=== PATIENT | male | born 1960 | race Caucasian/White ===

== ENCOUNTER 2016-05-20 10:45 | Outpatient (CLI) | payer OTHER | END 2016-05-20 10:46 | disposition home or self-care (01) | DX: E55.9 Vitamin D deficiency, unspecified (principal); Z79.899 Other long term (current) drug therapy ==

== ENCOUNTER 2017-10-14 09:52 | Outpatient (CLI) | payer OTHER ==
--- NOTE | 2017-10-14 16:05 | MRI Report ---
EXAM: RIGHT KNEE MRI WITHOUT CONTRAST EXAM DATE: 10/14/2017 10:56 AM. CLINICAL HISTORY: Internal derangement of the right knee. COMPARISON: None. TECHNIQUE: Multiplanar, multisequence T1-weighted and fluid-sensitive sequences of the knee without c ontrast. Other: None. FINDINGS: Bones: No fractures. Reactive periarticular marrow edema is in the periphery of the medial femoral co ndyle.. Articular Cartilage: Unremarkable. Medial Meniscus: The body of the medial meniscus demonstrates a longitudinal tear (801/19). Lateral Meniscus: The lateral meniscus is intact. Cruciate Ligaments: The anterior and posterior cruciate ligaments are intact. Collateral Ligaments: The medial collateral and lateral collateral ligamentous structures are intact. Tendons: The quadriceps, patellar, semimembranosus, and popliteus tendons are unremarkable. Musculature: No edema or fatty atrophy. Other: No effusion. No popliteal cyst. No loose bodies. The medial and lateral retinacula are intact . Prepatellar subcutaneous edema seen.. IMPRESSION: Longitudinal tear in the body of the medial meniscus. [facility] MUSCULOSKELETAL RADIOLOGY SECTION Referring Provider Line: [phone] SITE ID: [id number]
== END 2017-10-14 09:53 | disposition home or self-care (01) ==
LOC: DI 09:52
PROVIDERS: ATTEND Nurse Practitioner Primary Care
DX: S83.241A Other tear of medial meniscus, current injury, right knee, initial encounter (principal)

== ENCOUNTER → 2018-05-06 | Outpatient (CLI) | payer OTHER | LOC: LAB.R 08:00 | PROVIDERS: ATTEND Nurse Practitioner Primary Care | DX: Z53.9 Procedure and treatment not carried out, unspecified reason (principal) ==

== ENCOUNTER 2019-05-23 07:54 | Outpatient (CLI) | payer OTHER ==
[2019-05-23 08:16] LABS: BASOPHILS % (AUTO) 0.7 %; EOSINOPHILS # (AUTO) 0.2 10^3/uL (0.0-0.7); EOSINOPHILS % (AUTO) 3.3 %; HGB - HEMOGLOBIN 15.5 g/dL (14.0-18.0); LYMPHOCYTES # (AUTO) 1.7 10^3/uL (1.5-3.5); LYMPHOCYTES % (AUTO) 29.1 %; MEAN CORPUSCULAR HEMOGLOBIN 30.5 pg (27.0-31.0); MEAN CORPUSCULAR HGB CONC 33.8 g/dL (32.0-36.0); MEAN CORPUSCULAR VOLUME 90.2 fL (80.0-94.0); MEAN PLATELET VOLUME 10.2 fL (7.4-11.4); MONOCYTES # (AUTO) 0.7 10^3/uL (0.0-1.0); MONOCYTES % (AUTO) 12.2 %; NEUTROPHILS # (AUTO) 3.2 10^3/uL (1.5-6.6); NEUTROPHILS % (AUTO) 54.2 %; PLT - PLATELET COUNT 228 10^3/uL (130-450); RED BLOOD COUNT 5.08 10^6/uL (4.70-6.10); RED CELL DISTRIBUTION WIDTH 14.1 % (12.0-15.0); WHITE BLOOD COUNT 5.8 x10^3/uL (4.8-10.8)
[2019-05-23 08:36] LABS: ALBUMIN 4.3 g/dL (3.2-5.5); ALBUMIN/GLOBULIN RATIO 1.4 (1.0-2.2); ALKALINE PHOSPHATASE 89 IU/L (42-121); ALT ALANINE AMINOTRANSFERASE 21 IU/L (10-60); AST ASPARTATE AMINOTRANSFERASE 25 IU/L (10-42); BILIRUBIN,TOTAL 1.3 mg/dL (0.2-1.0); BUN - BLOOD UREA NITROGEN 21 mg/dL (6-20); CALCIUM 8.8 mg/dL (8.5-10.3); CARBON DIOXIDE - CO2 30 mmol/L (21-32); CHLORIDE 100 mmol/L (101-111); CHOL/HDL RATIO 3.1 (<5.0); CHOLESTEROL 233 mg/dL; CREATININE 1.1 mg/dL (0.6-1.2); GFR - MDRD 69 (>89); GLUCOSE 104 mg/dL (70-100); HDL CHOLESTEROL 74 mg/dL; LDL CHOLESTEROL,CALCULATED 133 mg/dL; LDL/HDL RATIO 1.8 (<3.6); SODIUM 137 mmol/L (135-145); TOTAL PROTEIN 7.4 g/dL (6.7-8.2); VLDL CHOLESTEROL 26 mg/dL
== END 2019-05-23 07:55 | disposition home or self-care (01) ==
LOC: LAB 07:54
PROVIDERS: ATTEND Family Medicine
DX: E78.5 Hyperlipidemia, unspecified (principal); I10 Essential (primary) hypertension; B36.9 Superficial mycosis, unspecified; E55.9 Vitamin D deficiency, unspecified; Z12.5 Encounter for screening for malignant neoplasm of prostate
CPT/HCPCS: 36415; 80053; 80061; 82306; 83721; 84153; 85025

== ENCOUNTER 2020-06-12 09:53 | Outpatient (CLI) | payer OTHER ==
[2020-06-12 10:10] LABS: BASOPHILS % (AUTO) 0.6 %; EOSINOPHILS # (AUTO) 0.1 10^3/uL (0.0-0.7); EOSINOPHILS % (AUTO) 2.9 %; HGB - HEMOGLOBIN 15.4 g/dL (14.0-18.0); LYMPHOCYTES # (AUTO) 1.6 10^3/uL (1.5-3.5); LYMPHOCYTES % (AUTO) 31.6 %; MEAN CORPUSCULAR HEMOGLOBIN 30.9 pg (27.0-31.0); MEAN PLATELET VOLUME 10.7 fL (7.4-11.4); MONOCYTES # (AUTO) 0.6 10^3/uL (0.0-1.0); MONOCYTES % (AUTO) 11.4 %; NEUTROPHILS # (AUTO) 2.6 10^3/uL (1.5-6.6); NEUTROPHILS % (AUTO) 53.3 %; PLT - PLATELET COUNT 235 10^3/uL (130-450); RED BLOOD COUNT 4.98 10^6/uL (4.70-6.10); RED CELL DISTRIBUTION WIDTH 13.5 % (12.0-15.0); WHITE BLOOD COUNT 4.9 x10^3/uL (4.8-10.8)
[2020-06-12 10:27] LABS: ALBUMIN 4.6 g/dL (3.2-5.5); ALBUMIN/GLOBULIN RATIO 1.4 (1.0-2.2); ALKALINE PHOSPHATASE 93 IU/L (42-121); ALT ALANINE AMINOTRANSFERASE 18 IU/L (10-60); AST ASPARTATE AMINOTRANSFERASE 23 IU/L (10-42); BILIRUBIN,TOTAL 1.1 mg/dL (0.2-1.0); BUN - BLOOD UREA NITROGEN 22 mg/dL (6-20); CALCIUM 9.2 mg/dL (8.5-10.3); CARBON DIOXIDE - CO2 28 mmol/L (21-32); CHLORIDE 100 mmol/L (101-111); CHOL/HDL RATIO 3.4 (<5.0); CHOLESTEROL 213 mg/dL; CREATININE 1.1 mg/dL (0.6-1.2); GLUCOSE 109 mg/dL (70-100); HDL CHOLESTEROL 62 mg/dL; LDL CHOLESTEROL,CALCULATED 133 mg/dL; LDL/HDL RATIO 2.1 (<3.6); MAGNESIUM 2.2 mg/dL (1.7-2.8); TOTAL PROTEIN 7.9 g/dL (6.7-8.2); VLDL CHOLESTEROL 18 mg/dL
== END 2020-06-12 09:54 | disposition home or self-care (01) ==
LOC: LAB 09:53
PROVIDERS: ATTEND Family Medicine
DX: E55.9 Vitamin D deficiency, unspecified (principal); E87.6 Hypokalemia; I10 Essential (primary) hypertension
CPT/HCPCS: 36415; 80053; 80061; 82306; 83721; 83735; 84153; 84443; 85025

== ENCOUNTER 2020-11-22 16:21 | Outpatient (CLI) | payer OTHER ==
[2020-11-22 16:41] LABS: BASOPHILS # (AUTO) 0.1 10^3/uL (0.0-0.1); BASOPHILS % (AUTO) 0.8 %; EOSINOPHILS # (AUTO) 0.1 10^3/uL (0.0-0.7); EOSINOPHILS % (AUTO) 0.8 %; HCT - HEMATOCRIT 46.6 % (42.0-52.0); LYMPHOCYTES # (AUTO) 1.5 10^3/uL (1.5-3.5); LYMPHOCYTES % (AUTO) 19.6 %; MEAN CORPUSCULAR HEMOGLOBIN 30.5 pg (27.0-31.0); MEAN CORPUSCULAR HGB CONC 34.3 g/dL (32.0-36.0); MEAN CORPUSCULAR VOLUME 88.9 fL (80.0-94.0); MEAN PLATELET VOLUME 10.3 fL (7.4-11.4); NEUTROPHILS % (AUTO) 65.4 %; PLT - PLATELET COUNT 253 10^3/uL (130-450); RED BLOOD COUNT 5.24 10^6/uL (4.70-6.10); RED CELL DISTRIBUTION WIDTH 13.9 % (12.0-15.0); WHITE BLOOD COUNT 7.7 x10^3/uL (4.8-10.8)
[2020-11-22 16:51] LABS: ALBUMIN 4.2 g/dL (3.2-5.5); ALBUMIN/GLOBULIN RATIO 1.3 (1.0-2.2); BILIRUBIN,TOTAL 0.9 mg/dL (0.2-1.0); TOTAL PROTEIN 7.4 g/dL (6.7-8.2)
[2020-11-22 17:06] LABS: THYROID STIMULATING HORMONE 1.66 uIU/mL (0.34-5.60)
[2020-11-22 19:57] LABS: ESTIMATED AVERAGE GLUCOSE 111 mg/dL (70-100); HEMOGLOBIN A1c% 5.5 % (4.27-6.07)
== END 2020-11-22 16:22 | disposition home or self-care (01) ==
LOC: LAB 16:21
PROVIDERS: ATTEND Family Medicine
DX: I10 Essential (primary) hypertension (principal); R41.82 Altered mental status, unspecified; R73.9 Hyperglycemia, unspecified
CPT/HCPCS: 36415; 80053; 83036; 84443; 85025

== ENCOUNTER 2021-01-15 20:09 | Outpatient (CLI) | payer OTHER | END 2021-01-15 20:10 | disposition critical access hospital (66) | LOC: EMS 20:09 | DX: R55 Syncope and collapse (principal) | CPT/HCPCS: A0425; A0427 ==

== ENCOUNTER 2021-01-15 20:24 | Observation (INO) | payer OTHER ==
[2021-01-15] MEDS ORDERED: FAMOTIDINE 20 MG TABLET PO STA (20:38)
[2021-01-15] MEDS ORDERED: predniSONE 20 MG TABLET PO STA (20:38)
[2021-01-15 20:57] LABS: EOSINOPHILS # (AUTO) 0.1 10^3/uL (0.0-0.7); EOSINOPHILS % (AUTO) 1.4 %; HCT - HEMATOCRIT 46.4 % (42.0-52.0); HGB - HEMOGLOBIN 15.9 g/dL (14.0-18.0); LYMPHOCYTES # (AUTO) 1.8 10^3/uL (1.5-3.5); LYMPHOCYTES % (AUTO) 19.4 %; MEAN CORPUSCULAR HEMOGLOBIN 30.7 pg (27.0-31.0); MEAN CORPUSCULAR HGB CONC 34.3 g/dL (32.0-36.0); MEAN CORPUSCULAR VOLUME 89.6 fL (80.0-94.0); MEAN PLATELET VOLUME 10.7 fL (7.4-11.4); MONOCYTES # (AUTO) 0.4 10^3/uL (0.0-1.0); MONOCYTES % (AUTO) 4.8 %; NEUTROPHILS # (AUTO) 6.8 10^3/uL (1.5-6.6); PLT - PLATELET COUNT 266 10^3/uL (130-450); RED BLOOD COUNT 5.18 10^6/uL (4.70-6.10); RED CELL DISTRIBUTION WIDTH 13.1 % (12.0-15.0); WHITE BLOOD COUNT 9.2 x10^3/uL (4.8-10.8)
[2021-01-15 21:03] LABS: INR 1.3 (0.8-1.2); PT - PROTHROMBIN TIME 13.9 secs (9.9-12.6)
[2021-01-15 21:13] LABS: ALBUMIN 3.8 g/dL (3.2-5.5); ALBUMIN/GLOBULIN RATIO 1.4 (1.0-2.2); BILIRUBIN,TOTAL 0.9 mg/dL (0.2-1.0); CALCIUM 8.3 mg/dL (8.5-10.3); CREATININE 1.7 mg/dL (0.6-1.2); POTASSIUM 2.9 mmol/L (3.5-5.0); TOTAL PROTEIN 6.5 g/dL (6.7-8.2)
--- NOTE | 2021-01-15 21:21 | XRAY Report ---
PROCEDURE: Chest 1 View X-Ray INDICATIONS: Chest Pain TECHNIQUE: One view of the chest was acquired. COMPARISON: None. FINDINGS: Surgical changes and devices: An electronic device is seen projecting over the left chest.. Lungs and pleura: No pleural effusions or pneumothorax. Lungs are clear. Mediastinum: Mediastinal contours appear normal. Heart size is normal. Bones and chest wall: No suspicious bony lesions. Overlying soft tissues appear unremarkable. IMPRESSION: No acute cardiopulmonary abnormality. Reviewed by: Chalino Ware MD on 01/15/2021 9:20 PM PDT Approved by: Chalino Ware MD on 01/15/2021 9:20 PM PDT Station ID: [id number]
[2021-01-15] MEDS ORDERED: SODIUM CHLORIDE 0.9% 1,000 ML IV STA (21:34)
--- NOTE | 2021-01-15 21:36 | ED Physician Documentation ---
History of Present Illness - Stated complaint Stated Complaint: ALLERGIC REACTION - Chief complaint Chief Complaint: Neuro - Additonal information Additional information: 60-year-old male presents the emergency department for evaluation of allergic reaction. 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 He states that he does not always have a reaction. Shortly after eating the shrimp he began to notice some numbness and tingling in his mouth and he took FERDINAND. He then went on a walk with his significant other and when returning began to feel like his symptoms were worsening. He was in the bathroom getting Benadryl when he began to feel suddenly faint and had a lapse in consciousness. He was able to get up, but had a lapse in consciousness again. His girlfriend summoned 911. When EMS arrived they noted that he had a blood pressure of 70s over 40s. He was also slow to awake. Upon transport to the emergency department which she received 400 mils of crystalloid his blood pressure had rebounded to 120's on arrival. Patient is not amnesic to the events and does remember everything up until his syncopal episode. He is wearing an implanted Zio athletic monitor as he had a s troke after returning from [place] in November. He was treated as an outpatient and has an an MRI. His neurologist requested he wear the zio patch Patient is denying chest pain or shortness of air. He has no tongue or lip swelling. He has no focal neuro deficits. He does have a mild irregular flat erythema to his skin which may be early hives. He also does report intense skin pruritus. pmh most significant for htn and hyperlipidema for which he is on amlodipine and a statin. Non smoker. + etoh PD PAST MEDICAL HISTORY - Past Medical History Past Medical History: Yes Cardiovascular: Hypertension Neuro: TIA - Past Surgical History Past Surgical History: No - Allergies Allergies/Adverse Reactions: Allergies Allergy/AdvReac Type Severity Reaction Status Date / Time shrimp Allergy Itching Verified 01/15/21 20:42 - Social History Does the pt smoke?: No Smoking Status: Never smoker Does the pt drink ETOH?: Yes Does the pt have substance abuse?: No - Immunizations Immunizations are current?: Yes - POLST Patient has POLST: No Results - Vitals Vitals: Vital Signs - 24 hr 01/15/21 01/15/21 01/15/21 20:38 20:46 20:51 Temperature 36.1 C L Heart Rate 69 74 Heart Rate [ Sitting] Heart Rate [ Standing] Heart Rate [ 64 Supine] Respiratory 20 15 Rate Blood Pressure 113/67 113/70 Blood Pressure [Sitting] Blood Pressure [Standing] Blood Pressure 135/77 H [Supine] O2 Saturation 96 98 01/15/21 21:48 Temperature Heart Rate Heart Rate [ 76 Sitting] Heart Rate [ 80 Standing] Heart Rate [ 64 Supine] Respiratory Rate Blood Pressure Blood Pressure 127/81 H [Sitting] Blood Pressure 123/74 [Standing] Blood Pressure 135/77 H [Supine] O2 Saturation Oxygen O2 Source Room air - Labs Labs: Laboratory Tests 01/15/21 01/15/21 01/15/21 20:53 20:53 20:53 WBC 9.2 RBC 5.18 Hgb 15.9 Hct 46.4 MCV 89.6 MCH 30.7 MCHC 34.3 RDW 13.1 Plt Count 266 MPV 10.7 Neut # (Auto) 6.8 H Lymph # (Auto) 1.8 [place] # (Auto) 0.4 Eos # (Auto) 0.1 Baso # (Auto) 0.0 Absolute Nucleated RBC 0.00 Nucleated RBC % 0.0 PT 13.9 H INR 1.3 H Sodium 141 Potassium 2.9 L Chloride 106 Carbon Dioxide 25 Anion Gap 10.0 BUN 22 H Creatinine 1.7 H Estimated GFR (MDRD) 41 L Glucose 145 H Calcium 8.3 L Total Bilirubin 0.9 AST 21 ALT 15 Alkaline Phosphatase 88 Troponin I High Sens Total Protein 6.5 L Albumin 3.8 Globulin 2.7 Albumin/Globulin Ratio 1.4 Lipase 32 01/15/21 20:53 WBC RBC Hgb Hct MCV MCH MCHC RDW Plt Count MPV Neut # (Auto) Lymph # (Auto) [place] # (Auto) Eos # (Auto) Baso # (Auto) Absolute Nucleated RBC Nucleated RBC % PT INR Sodium Potassium Chloride Carbon Dioxide Anion Gap BUN Creatinine Estimated GFR (MDRD) Glucose Calcium Total Bilirubin AST ALT Alkaline Phosphatase Troponin I High Sens 7.4 Total Protein Albumin Globulin Albumin/Globulin Ratio Lipase PD MEDICAL DECISION MAKING - ED course Complexity details: reviewed old records, considered differential, d/w patient, 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 very brief syncope episodes at home. He had previously taken ferdinand and benadryl. when EMS arrived he was hypotensive and reveived 400 ml of crystalloid enroute to the ED and was normotensive on arrival here He reported to this provider that he was diagnosed with a stroke in late November after returning from [place]. he experienced speech difficulty for up to 2 weeks. He has had an MRI completed at [facility]. He has been seen by a neurologist and has been wearing a Holter monitor for about 2 weeks. Previous to the events of today he has not had any previous syncopal events. Patient was given prednisone and Pepcid here in the emergency department with good relief of the pruritus as well as the early urticaria. He had no airway involvement. Screening labs show a mild hyokalemia of 2.9 (which is typicval of the labs previously obtained here.) Chest x-ray is unrevealing. Orthostatics were not positive. however given recent CVA and the presence of a Holter monitor the cause of his syncope event at home is not clear. EKG was non ischemic. No ectopy or abnormal rythm while monitored in the ED. negative troponin on presentation. I do not think syncope was related to the shrimp allergy, though anaphylaxis is on the differential. In addition, despite negative othrostatics, he does have mild LUIS, which may have contributed to the syncope and he may benefit from further hydration. With the recent stroke history a more emergent echo is also indicated. I have discussed this case with our hospitalist Dr. Oliver agrees to bring the patient in for observation and further treatment. Patient was made aware that he would be admitted for observation and is agreeable to the plan. Departure - Departure Disposition: ED Place in Observation Clinical Impression: LUIS (acute kidney injury), History of recent stroke Syncope Qualifiers: Syncope type: unspecified Qualified Code(s): R55 - Syncope and collapse Allergic reaction Qualifiers: Encounter type: initial encounter Qualified Code(s): T78.40XA - Allergy, unspecified, initial encounter Discharge Date/Time: 01/15/21 23:00
[2021-01-15] MEDS ORDERED: SODIUM CHLORIDE FLUSH 0.9% 10 ML SYRINGE IVP PRN (22:20)
[2021-01-15] MEDS ORDERED: ONDANSETRON 4 MG/2 ML VIAL IVP PRN (22:20)
[2021-01-15] MEDS ORDERED: ACETAMINOPHEN 325 MG TABLET PO PRN (22:20)
[2021-01-15] MEDS ORDERED: SODIUM CHLORIDE 0.9% 1,000 ML IV SCH (23:00)
[2021-01-15] MEDS: POTASSIUM CHLOR 10 MEQ/100 ML 10 MEQ/100 ML BAG IV SCH (23:20)
[2021-01-15] MEDS ORDERED: EPINEPHrine 1 MG/ML AMP ONE (23:38)
[2021-01-15] MEDS ORDERED: EPINEPHrine 4 MG in DEXTROSE 5% 246 ML IV PRN (23:45)
--- NOTE | 2021-01-15 23:52 | HISTORY & PHYSICAL EXAMINATION ---
Chief Complaint - Chief Complaint Chief Complaint: syncope History of Present Illness - Admitted From Admitted From:: ED - History Obtained From History obtained from: ED provider and the patient - History of Present Illness HPI Comment/Other: This is a 60-year-old male who has a history of hypertension on Amlodipine, hyperlipidemia on a statin and takes 1 daily aspirin ever since having a stroke 2 months ago. He was not hospitalized for the stroke, and describes that he noticed it while he was on vacation in [place], when he had trouble speaking for about a week. When he returned home, he saw his PCP who sent him to a neurologist. He did have an MRI that showed a small stroke "in the inner part of the brain". His speech improved slowly to normal over 2 weeks. He was ordered to get rhythm monitoring and has a Zio patch implanted and also an Echocardiogram was ordered that has not yet been done. 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 He stopped eating shrimp for a decade then retried eating shrimp but rarely and has mild itching or lip swelling or at other times after shrimp he has no reactions whatsoever. Today he ate at a restaurant and had shrimp, then soon afterward noticed lip tingling for which he took an Lisbeth and the symptom resolved. Later, he was out for an evening walk with his girlfriend and noticed that he was getting itchy all over and his lower lip was swelling and tingling. He got back home and looked for a Benadryl. As he was getting the Benadryl he started to feel lightheaded. He then collapsed, sinking to the floor of the bedroom, but had no trauma. He was able to stand up on his own power and he walked to the bathroom. Following this he says that his memory is foggy and intermittent. He thinks he was in the bathtub and had fallen into the bathtub, again without trauma. His significant other called 911 and he remembers being removed from the bathtub onto the gurney which was on the floor. Vital signs at the scene, reported by EMS, was blood pressure: 70/50. He received 400 cc of crystalloid solution en route to the ED. In the ER, his BP was 120 systolic, and he was found to have redness and was itching diffusely. He was given prednisone 60 mg and Pepcid 40 mg p.o. The itching improved significantly. He states he never had throat swelling or a feeling of air hunger or any wheezing. He received no Epinephrine by paramedics or in the ED, according to records. Labs show LUIS and hypokalemia. Of note, all his past labs done here, have shown hypokalemia, and he has never been on a diuretic. He is being placed in Observation status to monitor for recurrence of symptoms ("biphasic anaphylaxis" or "delayed anaphylaxis"), to give iv hydration and replace Potassium. History - Past Medical History Cardiovascular: reports: Hypertension (He takes amlodipine, unknown dose every morning) Neuro: reports: CVA (2 weeks of word-finding difficulty, this has resolved. Since then, he takes 1 baby aspirin daily) HEENT: reports: Other (Lip swelling and generalized urticaria have happened previously when he had shrimp.) Other Past Medical History: He has never had allergic testing to shrimp or seen an Pipe Manufacture Supervisor, and has never been prescribed an EpiPen. - Past Surgical History Ortho: reports: Arthroscopic surgery - Family & Social History Family History: Mother: (Both of old age.), Father: , Other family: Alive and Well (He has 3 children, 2 daughters and a son who are healthy) Living arrangement: At home Living Situation: Alone Social History Notes: He is a non-smoker who never smoked. He drinks alcohol socially, about 2 glasses of wine about 5 times a week. He uses no cannabis or any illicit drugs. 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 He is . - Substance History Use: Uses substance without health or social issues: Alcohol - POLST Patient has POLST: No POLST Status: DNR (The patient would like to not have CPR, defibrillation or be put on a ventilator if he has a cardiac arrest) Meds/Allgy - Allergies Allergies/Adverse Reactions: Allergies Allergy/AdvReac Type Severity Reaction Status Date / Time shrimp Allergy Itching Verified 01/15/21 20:42 Exam - Vital Signs Reviewed Vital Signs: Yes Vital Signs: Vital Signs x48h Temp Pulse Pulse Pulse Pulse Resp BP 01/15/21 21:48 76 80 64 01/15/21 20:51 74 15 113/70 01/15/21 20:46 64 01/15/21 20:38 36.1 C L 69 20 113/67 BP BP BP Pulse Ox 01/15/21 21:48 127/81 H 123/74 135/77 H 01/15/21 20:51 98 01/15/21 20:46 135/77 H 01/15/21 20:38 96 - Physical Exam General Appearance: positive: No acute distress, Alert, Other (Very dark skinned/tanned. He appears tired.) Eyes Bilateral: positive: Other (Upper eyelids are swollen, not red.) ENT: positive: Pharynx nml, No signs of dehydration, Other (Lower lip is swollen, not red, his pharynx appears normal and no tongue swelling) Neck: positive: Nml inspection, No JVD, Trachea midline Respiratory: positive: No respiratory distress, Breath sounds nml Cardiovascular: positive: Regular rate & rhythm, No murmur Abdomen: positive: Non-tender, No organomegaly, No distention Skin: positive: Warm, Dry Extremities: positive: Non-tender, No pedal edema Neurologic/Psychiatric: positive: Oriented x3 (Memory is good, speech is normal, no focal deficits grossly) Conclusion/Plan - Problem List (1) Syncope Conclusion/Plan: Since blood pressure was documented low at the scene, the cause for syncope appears to be hypotension. Given his lab values showing LUIS, he may have had orthostasis from volume depl etion exacerbated by anaphylaxis (see below) and being on Amlodipine. Will monitor on telemetry and check orthostatic vital signs daily. We will give IV hydration for the LUIS. Will hold the Amlodipine Follow BMP daily. A troponin x1 was entirely within normal limits, no repeat planned. Obtain Echo, which was already planned anyway for work-up of the recent stroke. Unfortunately no rhythm strip can be downloaded from his implanted Zio patch, as this is to be mailed back in the next day or so, he says. Attention to his rhythm on 01/15/2021 at approximately 8 PM would be very important. Qualifiers: Syncope type: unspecified Qualified Code(s): R55 - Syncope and collapse (2) Anaphylaxis due to crustaceans Conclusion/Plan: The course of events point to anaphylaxis from vasodilation, related to in gesting shrimp, as the cause of his syncope. His urticaria has resolved but his lips and eyelids are still slightly swollen. Luckily, he has never had respiratory symptoms with his allergic reactions to shrimp. We will give IV fluids. Will monitor for recurrence of anaphylaxis (delayed anaphylaxis or recurrent anaphylaxis), and have epinephrine in D5W ready at the bedside to begin as an iv drip if his blood pressure should drop again. He should no longer expose himself to shrimp. He will need an EpiPen prescription ordered at discharge, and instructed to have it on him at all times. He may need outpatient referral to an Pipe Manufacture Supervisor for further work-up. (3) Hypokalemia Conclusion/Plan: He has chronic hypokalemia based on all the lab test done here. With his history of hypertension and being dark skinned, he may have hyperaldosteronism causing the chronic hypokalemia. Will replace with K riders. Follow BMP daily. We will obtain an 8 a.m. plasma renin activity and an aldosterone level, to evaluate for hyperaldosteronism. This diagnosis and cause was briefly explained to the patient (however he is groggy, being post-Benadryl and may forget it). This a send out lab, results will not be available tomorrow therefore outpatient work-up of this needs to continue. We will also check a spot urine potassium, spot urine sodium and spot urine creatinine. (4) LUIS (acute kidney injury) Conclusion/Plan: Patient has no clinical signs of dry mucosa but labs reveal LUIS. We will give IV fluid replacement. Avoid nephrotoxins. Will also obtain urine sodium and urine potassium for deeper evaluation of his electrolyte and renal abnormalities. Follow BMP daily. (5) CVA (cerebral vascular accident) Conclusion/Plan: Dysarthria was his only symptom and it resolved after 2 weeks, by his report. His work-up is underway ordered by his neurologist with a Zio patch in place and an echo is still pending. We will continue with his daily baby aspirin. We will obtain the Echo while here to evaluate more fully his syncope. (6) Hx of essential hypertension Conclusion/Plan: Because of low blood pressure at the scene, will hold the Amlodipine for now. Await till med list is reconciled Check orthostatic vital signs (7) Hyperlipidemia Conclusion/Plan: He remembers that his total cholesterol was about 230. We will resume his statin when medications are reconciled - Lab Results Fish Bones: 01/15/21 20:53 01/15/21 20:53 - Diagnostic Imaging Results Diagnostic Imaging Results: positive: Final report reviewed - EKG Results EKG Findings: Telemetry shows normal sinus rhythm, at a normal rate.
[2021-01-16 00:03] LABS: B. PARAPERTUSSIS- RESP PCR PAN NOT DETECTED; B. PERTUSSIS- RESP PCR PANEL NOT DETECTED; C. PNEUMONIAE- RESP PCR PANEL NOT DETECTED; CORONAVIRUS 229E-RESP PCR NOT DETECTED; CORONAVIRUS HKU1-RESP PCR NOT DETECTED; CORONAVIRUS NL63-RESP PCR NOT DETECTED; CORONAVIRUS OC43-RESP PCR NOT DETECTED; HUMAN METAPNEUMOVIRUS NOT DETECTED; INFLUENZA A- RESP PCR PANEL NOT DETECTED; INFLUENZA B - RESP PCR PANEL NOT DETECTED; M. PNEUMONIAE- RESP PCR PANEL NOT DETECTED; PARAINFLUENZA VIRUS 1 NOT DETECTED; PARAINFLUENZA VIRUS 2 NOT DETECTED; PARAINFLUENZA VIRUS 3 NOT DETECTED; PARAINFLUENZA VIRUS 4 NOT DETECTED; RHINOVIRUS/ENTEROVIRUS NOT DETECTED; RSV- RESP PCR PANEL NOT DETECTED; SARS-CoV-2 -RESP PCR PANEL NOT DETECTED
[2021-01-16] MEDS: POTASSIUM CHLOR 10 MEQ/100 ML 10 MEQ/100 ML BAG IV SCH ×5 (00:24→04:56)
[2021-01-16] MEDS: SODIUM CHLORIDE FLUSH 0.9% 10 ML SYRINGE IVP SCH ×2 (01:30→09:15)
[2021-01-16 01:47] LABS: CREATININE,URINE 42.5 mg/dL; POTASSIUM,URINE 27.5 mmol/L
[2021-01-16 06:42] LABS: BASOPHILS % (AUTO) 0.1 %; HCT - HEMATOCRIT 44.5 % (42.0-52.0); LYMPHOCYTES # (AUTO) 0.5 10^3/uL (1.5-3.5); LYMPHOCYTES % (AUTO) 5.9 %; MEAN CORPUSCULAR HEMOGLOBIN 30.4 pg (27.0-31.0); MEAN CORPUSCULAR HGB CONC 33.7 g/dL (32.0-36.0); MEAN CORPUSCULAR VOLUME 90.3 fL (80.0-94.0); MEAN PLATELET VOLUME 10.5 fL (7.4-11.4); MONOCYTES # (AUTO) 0.2 10^3/uL (0.0-1.0); MONOCYTES % (AUTO) 1.7 %; NEUTROPHILS # (AUTO) 8.3 10^3/uL (1.5-6.6); PLT - PLATELET COUNT 244 10^3/uL (130-450); RED BLOOD COUNT 4.93 10^6/uL (4.70-6.10); RED CELL DISTRIBUTION WIDTH 13.2 % (12.0-15.0)
[2021-01-16 06:56] LABS: CALCIUM 8.8 mg/dL (8.5-10.3); CREATININE 1.2 mg/dL (0.6-1.2); MAGNESIUM 1.9 mg/dL (1.7-2.8); PHOSPHORUS 2.1 mg/dL (2.5-4.6); POTASSIUM 3.9 mmol/L (3.5-5.0)
[2021-01-16 07:07] LABS: CALCIUM, IONIZED 1.12 mmol/L (1.15-1.33); VBG PH 7.394 (7.31-7.41)
[2021-01-16] MEDS: NEUTRA-PHOS 250 MG TABLET PO SCH ×2 (07:55→10:16)
[2021-01-16] MEDS ORDERED: SODIUM PHOSPHATE 15 MMOL in SODIUM CHLORIDE 0.9% 250 ML IV ONE (08:00)
[2021-01-16] MEDS ORDERED: POTASSIUM CHLORIDE 20 MEQ TABLET PO ONE (08:00)
[2021-01-16] MEDS ORDERED: ASPIRIN EC 81 MG TABLET PO SCH (09:00)
[2021-01-16] MEDS ORDERED: FAMOTIDINE 20 MG TABLET PO SCH (09:00)
--- NOTE | 2021-01-16 09:16 | Discharge Plan ---
Discharge Plan Problem Reviewed?: Yes Disposition: Home, Self Care Condition: Good Prescriptions: EPINEPHrine [Epinephrine] 0.5 mg IJ ONCE PRN #2 ml PRN Reason: Anaphylaxis Diet: Regular Activity Restrictions: Activity as Tolerated Instruction Topics: Shock Anaphylactic Dc, EpiPen Auto Injector Dc Health Concerns: You presented with an allergic reaction due to shrimp. It is likely that you passed out because of low blood pressure which can occur with anaphylaxis. Anaphylaxis can occur up to a few hours after exposure to a trigger. Fortunately, you have been stable since hospitalization. We did obtain an ultrasound of your heart which did not reveal any significant valvular disease which would explain your episode of passing out. Your heart rhythm has also been normal throughout this hospitalization. Plan of Treatment: It appears that you likely passed out because of anaphylaxis due to shrimp. It is recommended that you avoid shrimp at all costs in the future. We have prescribed you an EpiPen which you should always carry with you. It is recommended that you follow-up with an cyber security architect and a referral can be placed by your primary care physician. Your potassium was also noted to be low during this hospitalization. This was replaced while you were here and it is recommended that you continue to take potassium supplementation at home. Please follow-up with your primary care physician as they can monitor your potassium and can increase the dose if need be. Care Goals: The goal is to prevent further episodes of anaphylaxis. Assessment: The patient expressed understanding of the treatment plan. Additional Instructions or Follow Up instructions: Please follow-up with Dr. Tee on January 22 at 11:[address] [facility] primary clinic [place]. It is recommended that they refer you to an cyber security architect. No Smoking: If you smoke, Please STOP! Call for help. Follow-up with: Shahid Butts MD [Primary Care Provider] -
--- NOTE | 2021-01-16 10:10 | PHARMACY PROGRESS NOTE ---
- Best Possible Medication History Admit Date and Time: 01/15/21 0995 Processed by: Pharmacy Medication History completed: Yes Patient Interview: Completed Secondary Source(s): Written medication list, Physician records, Insurance records ([employer] TO CONFIRM HOME MEDICATIONS ) As the person ultimately responsible for medication therapy, providers are able to order a medication from an existing home medication list in [facility] via the "Reconcile Routine" prior to Confirmation of that medication by family support coordinator. Such practice is discouraged except when the physician, in their clinical judgment, deems that a medical need exists for a medication without regard to previous use.
--- NOTE | 2021-01-16 10:17 | DISCHARGE SUMMARY ---
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 Aanaphylaxis - resolved. Hypokalemia - stable. History of hypertension - stable. History of stroke - stable. Acute kidney injury - resolved. - HPI History of Present Illness: H&P per Dr. Granados: This is a 60-year-old male who has a history of hypertension on Amlodipine, hyperlipidemia on a statin and takes 1 daily aspirin ever since having a stroke 2 months ago. He was not hospitalized for the stroke, and describes that he noticed it while he was on vacation in [place], when he had trouble speaking for about a week. When he returned home, he saw his PCP who sent him to a neurologist. He did have an MRI that showed a small stroke "in the inner part of the brain". His speech improved slowly to normal over 2 weeks. He was ordered to get rhythm monitoring and has a Zio patch implanted and also an Echocardiogram was ordered that has not yet been done. 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 He stopped eating shrimp for a decade then retried eating shrimp but rarely and has mild itching or lip swelling or at other times after shrimp he has no reactions whatsoever. Today he ate at a restaurant and had shrimp, then soon afterward noticed lip tingling for which he took an Lisbeth and the symptom resolved. Later, he was out for an evening walk with his girlfriend and noticed that he was getting itchy all over and his lower lip was swelling and tingling. He got back home and looked for a Benadryl. As he was getting the Benadryl he started to feel lightheaded. He then collapsed, sinking to the floor of the bedroom, but had no trauma. He was able to stand up on his own power and he walked to the bathroom. Following this he says that his memory is foggy and intermittent. He thinks he was in the bathtub and had fallen into the bathtub, again without trauma. His significant other called 911 and he remembers being removed from the bathtub onto the gurney which was on the floor. Vital signs at the scene, reported by EMS, was blood pressure: 70/50. He received 400 cc of crystalloid solution en route to the ED. In the ER, his BP was 120 systolic, and he was found to have redness and was itching diffusely. He was given prednisone 60 mg and Pepcid 40 mg p.o. The itching improved significantly. He states he never had throat swelling or a feeling of air hunger or any wheezing. He received no Epinephrine by paramedics or in the ED, according to records. Labs show LUIS and hypokalemia. Of note, all his past labs done here, have shown hypokalemia, and he has never been on a diuretic. He is being placed in Observation status to monitor for recurrence of symptoms ("biphasic anaphylaxis" or "delayed anaphylaxis"), to give iv hydration and replace Potassium. - CONSULTS | PROCEDURES Procedures: Preliminary echocardiogram report showed a preserved ejection fraction without significant valvular disease. - HOSPITAL COURSE Hospital Course: He was placed in observation for syncope which was thought to be secondary to hypotension due to anaphylaxis. Throughout his hospitalization he has remained in a sinus rhythm. Orthostatics were checked and were negative. His urticaria has resolved and he has been hemodynamically stable. An echocardiogram showed a preserved ejection fraction without significant valvular disease. He is now stable for discharge home. He was prescribed 2 EpiPen's on discharge and was asked to follow-up with Dr. Tee on January 22. He was also encouraged to follow-up with an fuel cell systems engineer on an outpatient basis and to refrain from eating shrimp. - ALLERGIES Allergies/Adverse Reactions: Allergies Allergy/AdvReac Type Severity Reaction Status Date / Time shrimp Allergy Itching Verified 01/15/21 20:42 - MEDICATIONS Home Medications: Ambulatory Orders Medication Instructions Recorded Confirmed Amlodipine Besylate/Benazepril 1 cap PO DAILY 01/16/21 01/16/21 [Lotrel 10-40 mg Capsule] Aspirin [Aspirin EC] 81 mg PO DAILY 01/16/21 01/16/21 Atorvastatin [Lipitor] 20 mg PO QPM 01/16/21 01/16/21 EPINEPHrine [Epinephrine] 0.5 mg IJ ONCE PRN #2 ml 01/16/21 Potassium Chloride 10 meq PO DAILY 01/16/21 01/16/21 - PHYSICAL EXAM AT DISCHARGE General Appearance: positive: No acute distress, Alert Eyes Bilateral: positive: Normal inspection, Conjunctivae nml ENT: positive: ENT inspection nml Neck: positive: Nml inspection Respiratory: positive: No respiratory distress. negative: Wheezes, Rales Cardiovascular: positive: Regular rate & rhythm, No murmur. negative: Tachycardia, Systolic murmur Abdomen: positive: Non-tender, No distention. negative: Tenderness, Guarding, Rebound Skin: positive: Warm, Dry Extremities: positive: Full ROM, No pedal edema Neurologic/Psychiatric: positive: Motor nml. negative: Disoriented to person, Disoriented to place, Disoriented to time Physical Exam Other/Comments: Vital Signs - 24 hr 01/15/21 01/15/21 01/15/21 20:38 20:46 20:51 Temperature 36.1 C L Heart Rate 69 74 Heart Rate [ Monitoring electrodes] Heart Rate [ Sitting] Heart Rate [ Standing] Heart Rate [ 64 Supine] Respiratory 20 15 Rate Blood Pressure 113/67 113/70 Blood Pressure [Right Brachial artery] Blood Pressure [Sitting] Blood Pressure [Standing] Blood Pressure 135/77 H [Supine] O2 Saturation 96 98 01/15/21 01/15/21 01/16/21 21:48 23:04 00:03 Temperature 36.8 C Heart Rate Heart Rate [ 69 72 Monitoring electrodes] Heart Rate [ 76 Sitting] Heart Rate [ 80 Standing] Heart Rate [ 64 Supine] Respiratory 16 20 Rate Blood Pressure Blood Pressure 144/89 H 135/90 H [Right Brachial artery] Blood Pressure 127/81 H [Sitting] Blood Pressure 123/74 [Standing] Blood Pressure 135/77 H [Supine] O2 Saturation 100 99 01/16/21 01/16/21 01/16/21 01:00 03:00 04:40 Temperature Heart Rate Heart Rate [ 73 68 67 Monitoring electrodes] Heart Rate [ Sitting] Heart Rate [ Standing] Heart Rate [ Supine] Respiratory 16 14 13 Rate Blood Pressure Blood Pressure 136/87 H 139/89 H 117/68 [Right Brachial artery] Blood Pressure [Sitting] Blood Pressure [Standing] Blood Pressure [Supine] O2 Saturation 98 97 96 01/16/21 01/16/21 01/16/21 05:00 06:00 07:24 Temperature Heart Rate Heart Rate [ 75 72 76 Monitoring electrodes] Heart Rate [ Sitting] Heart Rate [ Standing] Heart Rate [ Supine] Respiratory 24 17 15 Rate Blood Pressure Blood Pressure 138/78 H 139/83 H 124/75 [Right Brachial artery] Blood Pressure [Sitting] Blood Pressure [Standing] Blood Pressure [Supine] O2 Saturation 99 97 98 01/16/21 01/16/21 08:08 10:35 Temperature 36.7 C Heart Rate Heart Rate [ 88 87 Monitoring electrodes] Heart Rate [ Sitting] Heart Rate [ Standing] Heart Rate [ Supine] Respiratory 18 20 Rate Blood Pressure Blood Pressure 120/99 H 139/96 H [Right Brachial artery] Blood Pressure [Sitting] Blood Pressure [Standing] Blood Pressure [Supine] O2 Saturation 98 97 Oxygen O2 Source Room air - LABS Result Diagrams: 01/16/21 06:33 01/16/21 06:33 - DIAGNOSTIC IMAGING Diagnostic Imaging Results: Final report reviewed - FOLLOW UP Follow Up: Following up with Dr. Tee on January 22 at 11:30 AM. He will need a referral to an fuel cell systems engineer. It is also recommended that he have a BMP checked given his hypokalemia as he may need increased potassium supplementation. Given his hypokalemia, aldosterone/renin activity was checked and this is pending on day of discharge. - TIME SPENT Time Spent in Discharge (Minutes): 31
[2021-01-16 10:36] VITALS: BP 139/96
== END 2021-01-16 11:05 | disposition home or self-care (01) ==
LOC: EDUNIT# → ED 20:24 → SUPCPDRO 20:24 → ICU 22:18
PROVIDERS: ADMIT Internal Medicine; ATTEND Internal Medicine
DX: T78.02XA Anaphylactic reaction due to shellfish (crustaceans), initial encounter (principal); N17.9 Acute kidney failure, unspecified; E87.6 Hypokalemia; I10 Essential (primary) hypertension; Z86.73 Personal history of transient ischemic attack (TIA), and cerebral infarction without residual deficits; E78.5 Hyperlipidemia, unspecified; Z79.82 Long term (current) use of aspirin; Z79.899 Other long term (current) drug therapy; Z66 Do not resuscitate; E86.9 Volume depletion, unspecified; Z20.822 Contact with and (suspected) exposure to COVID-19
CPT/HCPCS: 0202U; 36415; 71045; 80048; 80053; 82088; 82330; 82570; 83690; 83735; 84100; 84133; 84244; 84300; 84484; 85025; 85610; 87150; 93005; 93306; 96361; 96365; 96366; 99284; 99285; A9270; G0378; J7512

== ENCOUNTER 2021-02-07 15:08 | Outpatient (CLI) | payer BC, OTHER ==
[2021-02-07] MEDS ORDERED: IOPAMIDOL-300 100 ML VIAL ONE (15:18)
[2021-02-07] MEDS ORDERED: IOPAMIDOL-300 100 ML VIAL IVP ONE (15:39)
--- NOTE | 2021-02-07 16:53 | CT Report ---
PROCEDURE: ABDOMEN W/WO INDICATIONS: HYPERALDOSTERONISM, LACUNAR INFRACTION CONTRAST: IV CONTRAST: Isovue 300 ml: 100 PO CONTRAST: *NO PO CONTRAST TECHNIQUE: Noncontrast 5 mm thick sections acquired from the diaphragms to the symphysis. 5 mm coronal and sagi ttal reformats were then performed. For radiation dose reduction, the following was used: automated exposure control, adjustment of mA and/or kV according to patient size. COMPARISON: None. FINDINGS: Image quality: Excellent. Lung bases: Lung bases are clear. Heart size is normal. Adrenal glands: Normal bilaterally. No adrenal masses nor calcifications. Solid organs: Liver and spleen are normal in size and enhancement. Gallbladder partially contracted and otherwise within normal limits Biliary system is non dilated. Pancreas enhances normally. Kid neys are normal in size and enhancement. No hydronephrosis. Nonobstructing 2 mm calcification within the inferior pole right kidney. Peritoneum and bowel: Unenhanced bowel loops are normal in caliber and wall thickness. No free flui d or air. Nodes and vessels: No retroperitoneal or mesenteric adenopathy by size criteria. Aorta and inferior vena cava are normal in size. Miscellaneous: No ventral hernias. Bones: No suspicious bony lesions. No vertebral body compression fractures. IMPRESSION: 1. No adrenal masses bilaterally. 2. Nonobstructing right renal calculus. Reviewed by: Jennifer Bunn MD on 02/07/2021 4:51 PM PDT Approved by: Jennifer Bunn MD on 02/07/2021 4:51 PM PDT Station ID: [id number]
--- NOTE | 2021-02-08 11:54 | Ultrasound Report ---
PROCEDURE: Carotid Doppler Complete INDICATIONS: HYPERALDOSTERONISM, LACUNAR INFRACTION TECHNIQUE: Color and pulse Doppler interrogation was performed of both carotid systems, with image documentation and velocity measurements. COMPARISON: None. FINDINGS: Right side: Brachial blood pressure: 141/85 mm Hg. Common carotid artery peak systolic velocity: 75 cm/sec. Internal carotid artery peak systolic velocity: 54 cm/sec. Internal carotid artery end diastolic velocity: 42 cm/sec. External carotid artery peak systolic velocity: 60 cm/sec. ICA/CCA peak systolic ratio: 0.7 . Gonzalez scale imaging description: Significant plaque within the proximal internal carotid artery Percent internal carotid artery stenosis: Less than 50% . Vertebral artery: Flow direction is antegrade. Left side: Brachial blood pressure: 145/89 mm Hg. Common carotid artery peak systolic velocity: 63 cm/sec. Internal carotid artery peak systolic velocity: 42 cm/sec. Internal carotid artery end diastolic velocity: 15 cm/sec. External carotid artery peak systolic velocity: 50 cm/sec. ICA/CCA peak systolic ratio: 0.7 . Gonzalez scale imaging description: Moderate plaque within the proximal internal carotid artery Percent internal carotid artery stenosis: Less than 50% . Vertebral artery: Flow direction is antegrade. IMPRESSION: Less than 50% stenosis of the internal carotid arteries bilaterally. The estimate of stenosis included in the report of the imaging study was calculated using the NASCET method Reviewed by: Ruba Goldman MD on 02/08/2021 11:53 AM PDT Approved by: Ruba Goldman MD on 02/08/2021 11:53 AM PDT Station ID: [id number]
== END 2021-02-07 15:09 | disposition home or self-care (01) ==
LOC: DI 15:08
PROVIDERS: ATTEND Family Medicine
DX: I63.50 Cerebral infarction due to unspecified occlusion or stenosis of unspecified cerebral artery (principal); E26.9 Hyperaldosteronism, unspecified; N20.0 Calculus of kidney
CPT/HCPCS: 74170; 93880; Q9967

== ENCOUNTER 2021-05-07 23:11 | Outpatient (CLI) | payer BC | END 2021-05-07 23:12 | disposition EMS.NT | LOC: EMS 23:11 | DX: R47.02 Dysphasia (principal) ==